=== PATIENT | female | born 1975 | race African-American/Black ===

== ENCOUNTER 2020-07-22 05:18 | Emergency (ER) | payer OTHER ==
--- OUTSIDE RECORDS SUMMARY | 2020-07-22 05:21 | XMS REPORT | Continuity of Care Document ---
:1975 Author Organization [facility] t Address [address] [place] [address] Care Team Providers Name Role Phone Andrey URIBE, Francisco Primary Care Physician Lab, Fam Pob I Attending Clinician Unavailable Doctor Unassigned, Name Attending Clinician Unavailable Henrry Gamino DO Attending Clinician Lin NESS Attending Clinician Unavailable Darron Shepherd MD Attending Clinician Draw, Lab Attending Clinician Unavailable Payers Payer Name Policy Type Policy Number Effective Date Expiration Date S ource Problems Condition Condition Condition Status Onset Resolution Last Treating Co mments Source Name Details Category Date Date Treatment Clinician Date UJLEE JULEE Disease Active 2018-04 [place] positive positive 0-25 Method i 00:00: st 00 Acute pain Acute pain Disease Active 2018-04 [place] of both of both 0-25 Methodi knees knees 00:00: st 00 Allergies, Adverse Reactions, Alerts Allergy Allergy Status Severity Reaction(s) Onset Inactive Treating Comm ents Source Name Type Date Date Clinician Latex Propensi Active Altered 2018-04 No FLU [place] ty to Mental 0-02 Methodi adverse Status 00:00: st reaction 00 s to drug No Known DA Active [facility] Allergie 2-25 Clear s 00:00: [place] 00 [facility] Family History Family Member Diagnosis Comments Start Date Stop Date Source Natural father No Known Problems Aminah Marvin Natural mother Arthritis [facility] Natural mother Depression [facility] Natural mother Hepatitis [facility] Natural mother Liver failure [facility] Social History Social Habit Start Date Stop Date Quantity Comments Source Tobacco use and 2019-02-25 2019-02-25 Never used [facility] ethodist exposure 00:00:00 00:00:00 Alcohol intake 2019-02-25 2019-02-25 Current drinker [place] [facility] 00:00:00 00:00:00 of alcohol (finding) Alcohol Comment 2019-01-19 2019-01-19 occ. [place]sen ethodist 00:00:00 00:00:00 History of 2018-12-20 Cigarette Smoker [facility] tobacco use 00:00:00 Sex Ass[birth year] [facility]ist 00:00:00 00:00:00 Smoking Status Start Date Stop Date Source Former smoker 2019-02-25 00:00:00 2019-02-25 00:00:00 [place] [facility] Medications Ordered Filled Start Stop Current Ordering Indication Dosage Frequency Signature Comments Components Source Medication Medication Date Date Medication? Clinician (SIG) Name Name phentermine 2018-04 Yes Take by Aminah becerril (LOMAIRA) 8 -08 mouth. Method i mg tablet 12:50: LOMAIRA st 35 8mg escitalopra 2018-04 Yes 20mg QD Take 20 mg [facility] (LEXAPRO) 04-27 by mouth Meth larry 10 MG 12:47: daily. st tablet 04 multivit 2018-04 Yes Chew. [place] with 1-08 gummies Methodi min-folic 12:47: st acid 200 04 mcg tablet,chew able topiramate 2018-04 Yes 200mg QD Take 200 [place] (TOPAMAX) 1-08 mg by Methodi 25 MG 12:47: mouth st tablet 04 daily. lurasidone 2018-04 Yes 120mg QD Take 120 [place] (LATUDA) 20 1-08 mg by Methodi mg tablet 12:47: mouth st 04 daily. acetaminoph 2018-04 Yes Take by Aminah jerrica en (TYLENOL 1-08 mouth. Method i EXTRA 12:47: st STRENGTH 04 ORAL) traZODone 2018-04 Yes 300mg QD Take 6 [place] (DESYREL) 1-08 tablets Methodi 50 MG 00:00: ([address] tablet 00 total) by mouth nightly as needed for sleep. diclofenac 2018-04 Yes Arthralgia 2g Q.25D Apply 2 g [place] (VOLTAREN) 002 of both topically M ethodi 1 % gel 00:00: knees 4 (four) st 00 times a day. lamoTRIgine 2018-04 2020- No History of 25mg QD Take 1 [place] (LaMICtal) 0-01-18 bipolar tablet (25 Methodi 25 MG 00:00: 23:59 disorder mg total) st tablet 00 :00 by mouth daily. Procedures This patient has no known procedures. Plan of Care Planned Activity Planned Date Details Comments Source Future Scheduled 2021-05-21 Screening for [facility] Test 00:00:00 malignant neoplasm of cervix (procedure) [code = 499026466] Future Scheduled 2020-11-18 INFLUENZA VACCINE [facility] Test 00:00:00 [code = INFLUENZA VACCINE] Future Scheduled 1992 Hepatitis C [facility] Met [facility] Test 00:00:00 screening (procedure) [code = 703287801] Future Scheduled 1990 COVID-19 VACCINE (1) Aminah becerril [facility] Test 00:00:00 [code = COVID-19 VACCINE (1)] Encounters Start End Encounter Admission Attending Care Care Encounter Source Date/Time Date/Time Type Type Clinicians Facility Department ID 2020-07-20 2020-07-20 Laboratory Lab, Adc [facility] 1.2.840.114 [id number] 18:32:02 18:52:02 Only Fam Pob I Health [id number] [place] 4.2.7.2.686 Profhussain [id number] nal 0[address] One 2020-07-20 2020-07-20 Letter Doctor ANA LAURA 1.2.840.114 [id number] 00:00:00 00:00:00 (Out) Unassigned, ANTONIO [id number] [facility] 4.2.7.2.686 [id number] 044 2020-07-20 2020-07-20 Letter Doctor ANA LAURA 1.2.840.114 [id number] 00:00:00 00:00:00 (Out) Unassigned, ANTONIO 350.1.13.10 [facility] 4.2.7.2.686 [id number] 044 2020-07-20 2020-07-20 Letter Doctor ANA LAURA 1.2.840.114 [id number] 20 00:00:00 00:00:00 (Out) Unassigned, ANTONIO 350.1.13.10 [facility] 4.2.7.2.686 [id number] 044 2019-11-03 2019-11-03 [facility] Hanny [facility] 1.2.840.114 [id number] 16:57:00 23:59:00 Encounter Henrry SPECIALTY 350.1.13.10 CARE 4.2.7.2.686 [facility] [id number] [address] 2019-11-03 2019-11-03 Orders Doctor ANA LAURA 1.2.840.114 [id number] 00:00:00 00:00:00 Only Unassigned, ANTONIO 350.1.13.10 [facility] 4.2.7.2.686 [id number] 009 2019-07-16 2019-07-16 Nurse ANA LAURA Ceball[place] 1.2.840.114 [id number] 00:00:00 00:00:00 Triage Valariearon ALVAREZ 350.1.13.10 [facility]OSPITAL 4.2.7.2.686 [id number] 019 2019-07-12 2019-07-12 Telephone [facility] [id number] 00:00:00 00:00:00 [facility] 350.1.13.10 [place] 4.2.7.2.686 [place] [id number] Medical [facility] Office Building 2019-07-12 2019-07-12 Telephone [facility] 1.2.993.364 [id number] 00:00:00 00:00:00 [facility] 350.1.13.10 [place]ron Clear 4.2.7.2.686 [place] [id number] Medical 134 Office Building 2019-06-27 2019-07-07 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 Draw, [facility] 1.2.840.114 [id number] 16:08:26 08:00:55 Visit [facility] Lab Health 350.1.13.10 [place] 4.2.7.2.686 [place] [id number] Medical 353 Office Building Results Test Description Test Time Test Comments Results Result Comments Source UA RFLX MICR CULT IF INDICATED 2019-05-11 10:13:00 Test Item Value Reference Range Interpretation Comme nts UA COLOR (test code = COLU) YELLOW YEL/STRAW UA APPEARANCE (test code = APPU) SL CLOUDY CLEAR UA GLUCOSE DIPSTICK (test code = DGLUU) NEGATIVE NEGATIVE UA BILIRUBIN DIPSTICK (test code = BILU) NEGATIVE NEGATIVE UA KETONE DIPSTICK (test code = KETU) NEGATIVE NEGATIVE UA SPECIFIC GRAVITY (test code = SGU) 1.013 1.005-1.030 N UA BLOOD DIPSTICK (test code = PÉREZ) 2+ NEGATIVE A UA PH DIPSTICK (test code = MICHEAL) 5.0 5.0-7.0 N UA PROTEIN DIPSTICK (test code = PROU) NEGATIVE NEGATIVE UA UROBILINIOGEN DIPSTICK (test code = URO) 0.2 mg/dL 0.2-1.0 UA NITRITE DIPSTICK (test code = ABBY) NEGATIVE NEGATIVE UA LEUKOCYTE ESTERASE DIPSTICK (test code = LEUU) NEGATIVE NEGA TIVE UA WBC (test code = WBCU) 0-3 WBC/HPF 0-3 UA RBC (test code = RBCU) 4-10 RBC/HPF 0-3 UA WBC NO REFLEX (test code = WBCUCL) 0-3 WBC/HPF 0-3 UA BACTERIA (test code = BACU) TRACE /HPF NONE SEEN UA SQUAMOUS CELLS (test code = SQU) 6-10 /HPF NONE SEEN A UA MUCUS (test code = MUCU) 1+ /LPF NONE SEEN Indication for culture: Suprapubic PainSpecimen Description: MID STREAM- DUP AB/PEL/SC/[id number] 09:48:00 Name: PRABHAKAR HDZ [facility] [place] : 1975 Age/S: 43 / F [address] [place] [address] Unit #: [id number] Loc: CATHY Mayo77598 Phys: Everett Eden Acct: [id number] Dis Date: Status: REG ER PHONE #: [phone] Exam Date: 05/11/2019921 FAX #: [phone] Reason: see US Pelvic Non OB Complete EXAMS: CPTCODE: [id number] DUP AB/PEL/SC/LTD 51124 PROCEDURE: PELVIC ULTRASOUND INDICATION: Severe L suprapubic pain, history of ovarian cysts; 43-year-old female. Previous history of hysterectomy, right oophorectomy, partial left oophorectomy. COMPARISON: There are no previous relevant studies available for correlat ion. TECHNIQUE: Grayscale, color and Doppler transabdominal and transvaginal imaging of the pelvis was performed with standard technique. Transvaginal ultrasound is obtained for further evaluation of the endometrium and adnexal regions. LIMITATIONS: None. FINDINGS: UTERUS: Surgically absent. RIGHT OVARY: Surgically absent. LEFT OVARY: The left ovary measures approximately 3.5 x 2.5 x 1.9 cm.Subcentimeter follicles. Anechoic unilocular cyst within the ovary 1.2 x 1.1 x 1.2 cm compatible with dominant follicle. Partially exophytic irregular shaped cyst 1.6 x 1.0 x 1.2 cm, configuration compatible with involuting follicle/corpus luteum. Flow demonstrated in the ovary with low resistance arterial and venous waveforms obtained. BLADDER: Unremarkable. Comments: Trace free fluid in the left hemipelvis. IMPRESSION: 1. Small exophytic left ovarian cyst, configuration compatible with involuting follicle/corpus luteum. Trace free fluid in the pelvis. Please correlate clinically for evidence of follicular rupture as a source of the patient's symptoms. SL: TR-H PAGE 1 Signed Report (CONTINUED) Name: PRABHAKAR HDZ [facility] [place] : 1975 Age/S: 43 / F [address] [place] [address] Unit #: [id number] Loc: [place] [address] Phys: Everett Eden Acct: [id number] Dis Date: Status: REG ER PHONE #: [phone] Exam Date:05/11/2019921 FAX #: [phone] Reason: see US Pelvic Non OB Complete EXAMS: CPT CODE: [id number] DUP AB/PEL/SC/LTD 37479 <Continued> at 0948 Reported and signed by: Jacques Banda M.D. CC: Monserrat Gamino DO; Everett CALDERON Technologist: Autumn Mcmahon RDMS(Rosa)(BR) Trnscb Date/Time: 05/11/2019 (947) Bari Orig Print D/T:S: 05/11/2019 (951) Probe: PAGE 2 Signed Report- US TRANSVAGINAL NON [id number] 09:48:00 Name: PRABHAKAR HDZ [facility] : 1975 Age/S: 43 / F [address] [place] [address] Unit #: [id number] Loc: [place], [place] Phys: Everett Eden Acct: [id number] Dis Date: Status: REG ER PHONE #: [phone] Exam Date: 05/11/2019920 FAX #: [phone] Reason: see US P elvic Non OB Complete EXAMS: CPTCODE: [id number] [place] [address] PROCEDURE: PELVIC ULTRASOUND INDICATION: Severe L suprapubic pain, history of ovarian cysts; 43-year-old female. Previous history of hysterectomy, right oophorectomy, partial left oophorectomy. COMPARISON: There are no previous relevant studies available for correlation. TECHNIQUE: Grayscale, color and Doppler transabdominal and transvaginal imaging of the pelvis was performed with standard technique. Transvaginal ultrasound is obtained for further evaluation of the endometrium and adnexal regions. LIMITATIONS: None. FINDINGS: UTERUS: Surgically absent. RIGHT OVARY: Surgically absent. LEFT OVARY: The left ovary measures approximately 3.5 x 2.5 x 1.9 cm.Subcentimeter follicles. Anechoic unilocular cyst within the ovary 1.2 x 1.1 x 1.2 cm compatible with dominant follicle. Partially exophytic irregular shaped cyst 1.6 x 1.0 x 1.2 cm, configuration compatible with involuting follicle/corpus luteum. Flow demonstrated in the ovary with low resistance arterial and venous waveforms obtained. BLADDER: Unremarkable. Comments: Trace free fluid in the left hemipelvis. IMPRESSION: 1. Small exophytic left ovarian cyst, configuration compatible with involuting follicle/corpus luteum. Trace free fluid in the pelvis. Please correlate clinically for evidence of follicular rupture as a source of the patient's symptoms. SL: NADYA PAGE 1 Signed Report (CONTINUED) Name: PRABHAKAR HDZ : 1975 Age/S: 43 / F [address] [place] [address] Unit #: [id number] Loc: [place] [address] P hys: Everett Eden Acct: [id number] Dis Date: Status: REG ER PHONE #: [phone] Exam Date:05/11/2019920 FAX #: [phone] Reason: see US Pelvic Non OB Complete EXAMS: CPT CODE: [id number] [place] [address] <Continued> at 0948 Reported and signed by: Jacques Banda M.D. CC: Monserrat Gamino DO; Everett CALDERON Technologist: Autumn Mcmahon RDMS(Rosa)(BR) Trnscb Date/Time: 05/11/2019 (947) Bari Orig Print D/T:S: 05/11/2019 (52) Probe: [id number] PAGE 2 Signed Report- US PELVIS [id number] 09:48:00 Name: PRABHAKAR HDZ : 1975 Age/S: 43 / F [address] [place] [address] Unit #: [id number] Loc: CATHY Mayo77598 Phys: Everett Eden Acct: [id number] Dis Date: Status: REG ER PHONE #: [phone] Exam Date: 05/11/2019920 FAX #: [phone] Reason: Severe L suprapubic pain, histiory of ovarian c EXAMS: CPTCODE: [id number] US PELVIS COMPLETE 62592 PROCEDURE: P ELVIC ULTRASOUND INDICATION: Severe L suprapubic pain, history of ovarian cysts; 43-year-old female. Previous history of hysterectomy, right oophorectomy, partial left oophorectomy. COMPARISON: There are no previous relevant studies available for correlation. TECHNIQUE: Grayscale, color and Doppler transabdominal and transvaginal imaging of the pelvis was performed with standard technique. Transvaginal ultrasound is obtained for further evaluation of the endometrium and adnexal regions. LIMITATIONS: None. FINDINGS: UTERUS: Surgically absent. RIGHT OVARY: Surgically absent. LEFT OVARY: The left ovary measures approximately 3.5 x 2.5 x 1.9 cm.Subcentimeter follicles. Anechoic unilocular cyst within the ovary 1.2 x 1.1 x 1.2 cm compatible with dominant follicle. Partially exophytic irregular shaped cyst 1.6 x 1.0 x 1.2 cm, configuration compatible with involuting follicle/corpus luteum. Flow demonstrated in the ovary with low resistance arterial and venous waveforms obtained. BLADDER: Unremarkable. Comments: Trace free fluid in the left hemipelvis. IMPRESSION: 1. Small exophytic left ovarian cyst, configuration compatible with involuting follicle/corpus luteum. Trace free fluid in the pelvis. Please correlate clinically for evidence of follicular rupture as a source of the patient's symptoms. SL: TR-H PAGE 1 Signed Report (CONTINUED) Name: PRABHAKAR HDZ [facility] : 1975 Age/S: 43 / F [address] [place] [address] Unit #: [id number] Loc: [facility] [place] [address] Phys: Everett Eden Acct: [id number] Dis Date: Status: REG ER PHONE #: [phone] Exam Date:05/11/2019920 FAX #: [phone] Reason: Severe L suprapubic pain, histiory of ovarian c EXAMS: CPT CODE: [id number] US PELVIS COMPLETE 66733 <Continued> at 0948 Reported and signed by: Jacques Banda M.D. CC: Monserrat CALDERON Technologist: Autumn Mcmahon RDMS(Rosa)(ERNESTINE) Trnscb Date/Time: 05/11/2019 (947) Bari Orig Print D/T:S: 05/11/2019 (0985) Probe: PAGE 2 Signed ReportCOMPREHENSIVE METABOLIC [id number] 09:05:00 Test Item Value Reference Range Interpretation Comments SODIUM (test code = NA) 138 mEq/L 134-147 N POTASSIUM (test code = 3.6 mEq/L 3.4-5.0 N K) CHLORIDE (test code = 106 mEq/L 100-108 N CL) CARBON DIOXIDE (test 31 mEq/L 21-33 N code = CO2) ANION GAP (test code = 5 0-20 N GAP) GLUCOSE (test code = 94 mg/dL 70-110 N GLU) BLOOD UREA NITROGEN 5 mg/dL 7-18 L (test code = BUN) GLOMERULAR FILTRATION 65.3 95-105 L Units of measure = RATE (test code = GFR) ml/mi n/1.73 m2 CREATININE (test code = 1.1 mg/dL 0.6-1.3 N CREAT) TOTAL PROTEIN (test 7.8 g/dL 6.4-8.2 N code = PROT) ALBUMIN (test code = 3.50 g/dL 3.4-5.0 N ALB) CALCIUM (test code = 8.6 mg/dL 8.0-10.5 N CA) BILIRUBIN TOTAL (test 0.3 MG/DL <1.5 N code = BILT) SGOT/AST (test code = 15 IUnit/L 15-37 N AST) SGPT/ALT (test code = 20 IUnit/L 15-65 N ALT) ALKALINE PHOSPHATASE 69 IUnit/L 20-125 N TOTAL (test code = ALKP) COMPREHENSIVE METABOLIC [id number] 09:00:00 Test Item Value Reference Range Interpretation Comments SODIUM (test code = NA) 138 mEq/L 134-147 N POTASSIUM (test code = K) 3.6 mEq/L 3.4-5.0 N CHLORIDE (test code = CL) 106 mEq/L 100-108 N CARBON DIOXIDE (test code = CO2) 31 mEq/L 21-33 N ANION GAP (test code = GAP) 5 0-20 N GLUCOSE (test code = GLU) 94 mg/dL 70-110 N BLOOD UREA NITROGEN (test code = 5 mg/dL 7-18 L BUN) GLOMERULAR FILTRATION RATE (test 95-105 code = GFR) CREATININE (test code = CREAT) mg/dL 0.6-1.3 TOTAL PROTEIN (test code = PROT) g/dL 6.4-8.2 ALBUMIN (test code = ALB) g/dL 3.4-5.0 CALCIUM (test code = CA) 8.6 mg/dL 8.0-10.5 N BILIRUBIN TOTAL (test code = BILT) MG/DL <1.5 SGOT/AST (test code = AST) IUnit/L 15-37 SGPT/ALT (test code = ALT) IUnit/L 15-65 ALKALINE PHOSPHATASE TOTAL (test IUnit/L 20-125 code = ALKP) CBC W/AUTO [id number] 08:36:00 Test Item Value Reference Range Interpretation Comments WHITE BLOOD CELL (test code = 6.69 x10 3/uL 4.5-11.0 N WBC) RED BLOOD CELL (test code = 5.14 x10 6/uL 3.54-5.02 H RBC) HEMOGLOBIN (test code = HGB) 13.8 g/dL 11.0-15.0 N HEMATOCRIT (test code = HCT) 42.4 % 33.0-45.0 N MEAN CELL VOLUME (test code = 82.5 fL 81.0-99.0 N MCV) MEAN CELL HGB (test code = MCH) 26.8 pg 27.0-33.0 L MEAN CELL HGB CONCETRATION 32.5 g/dL 33.0-37.0 L (test code = MCHC) RED CELL DISTRIBUTION WIDTH CV 13.8 % 11.5-14.5 N (test code = RDW) RED CELL DISTRIBUTION WIDTH SD 41.1 fL 37.0-54.0 N (test code = RDW-SD) PLATELET COUNT (test code = 335 x10 3/uL 150-400 N PLT) MEAN PLATELET VOLUME (test code 10.1 fL 7.0-9.0 H = MPV) NEUTROPHIL % (test code = NT%) 56.1 % 56.0-77.0 N IMMATURE GRANULOCYTE % (test 0.3 % 0.0-2.0 N code = IG%) LYMPHOCYTE % (test code = LY%) 35.4 % 14.0-32.0 H MONOCYTE % (test code = MO%) 5.7 % 4.8-9.0 N EOSINOPHIL % (test code = EO%) 2.1 % 0.3-3.7 N BASOPHIL % (test code = BA%) 0.4 % 0.0-2.0 N NUCLEATED RBC % (test code = 0.0 % 0-0 N NRBC%) NEUTROPHIL # (test code = NT#) 3.75 x10 3/uL 2.0-7.6 N IMMATURE GRANULOCYTE # (test 0.02 x10 3/uL 0.00-0.03 N code = IG#) LYMPHOCYTE # (test code = LY#) 2.37 x10 3/uL 1.0-3.8 N MONOCYTE # (test code = MO#) 0.38 x10 3/uL 0.1-0.8 N EOSINOPHIL # (test code = EO#) 0.14 x10 3/uL 0.0-0.2 N BASOPHIL # (test code = BA#) 0.03 x10 3/uL 0.0-0.2 N NUCLEATED RBC # (test code = 0.00 x10 3/uL 0.0-0.1 N NRBC#) MANUAL DIFF REQUIRED (test code NO = MDIFF) - CT HEAD/BRAIN W/O [id number] 16:58:00 Name: PRABHAKAR HDZ Ok [facility] : 1975 Age/S: 43 / F [address] [place] [address] Unit #: [id number] Loc: [facility] [id number] Phys: Lalo Granado Acct: [id number] Dis Date: Status: REG ER PHONE #: [phone] Exam Date: 04/23/2019 1630 FAX #: [phone] Reason: worst he adache of her life EXAMS: CPTCODE: [id number] CT HEAD/BRAIN W/O CONT 49096 Study: - CT HEAD/BRAIN W/O CONT 04/23/2019 3:31 PM Ordering Physician: YUMIKO Guthrie Clinical Indication: 44-year-old with worst headache of life. Migraine for 2 or 3 days. Comparison: None TECHNIQUE: CT images are obtained from the foramen magnum to the vertex on a multidetector CT. Sagittal and coronal reformats are acquired. CT imaging performed at this location utilizes radiation dose optimization techniques which include one or more of the following: Automated exposure control Adjustment of the MAA and/or KUB according topatient size Use of iterative reconstruction technique CT radiation dose DLP: 420 mGy-cm. FINDINGS: Ventricles, sulci and basal cisterns are within normal limits for age. The heard-white junction is intact. No encephalomalacic changes are seen. Sellar and suprasellar regions as well as cerebellopontine angle cisterns are normal in appearance. There is no evidence for intracranial mass, mass effect or extra-axial fluid collection. There is no evidence for intracranial hemorrhage. The skull is intact. Visualized paranasal sinuses are clear. Mastoid air cells are clear. Orbital structures are grossly unremarkable. IMPRESSION: Normal computed tomographyscan of the brain without contrast. SL: SIL at 5638 Reported and signed by: Leny Denton M.D. PAGE 1 Signed Report (CONTINUED) Name: PRABHAKAR HDZ [facility] : 1975 Age/S: 43 / F [address] [place] [address] Unit #: [id number] Loc: [place] [address] Phys: Lalo Granado Acct: [id number] Dis Date: Status: REG ER PHONE #: [phone] Exam Date: 04/23/2019 1630 FAX #: [phone] Reason: worst headache of her life EXAMS: CPT CODE: [id number] CT HEAD/BRAIN W/O CONT 60143 <Continued> CC: Lalo CALDERON; Leo Freed MD Technologist:Geoff Pope, RT(R); Viviana Laura CTDI: DLP: Trnscb Date/Time: 04/23/2019 (1658) [email or web address] Orig Print D/T: S: 04/23/2019(5787) PAGE 2 Signed Report
--- NOTE | 2020-07-22 05:46 | ER ---
Nurse's Notes [facility] Name: Yoni Gao Age: 44 yrs Sex: Female : 1975 Arrival Date: 07/22/2020 Time: 05:21 Bed 5 Private MD: Diagnosis: Otalgia, left ear Presentation: 07/22 05:30 Chief complaint: Patient states: I have been having left ear pain for the past week. I jb4 was put on Amoxicillin for it by my PCP. It has not gotten any better. Coronavirus screen: Client denies travel out of the [place] in the last 14 days. At this time, the client does not indicate any symptoms associated with coronavirus-19. Ebola Screen: No symptoms or risks identified at this time. Initial Sepsis Screen: Does the patient meet any 2 criteria? No. Patient's initial sepsis screen is negative. Does the patient have a suspected source of infection? No. Patient's initial sepsis screen is negative. Risk Assessment: Do you want to hurt yourself or someone else? Patient reports no desire to harm self or others. Onset of symptoms was July 15, 2020. Transition of care: patient was not received from another setting of care. 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 - Social history:: Smoking status: Patient denies any tobacco usage or history of. Patient uses alcohol, occasionally. Screenin:34 Abuse screen: Denies threats or abuse. Nutritional screening: No deficits noted. jb4 Tuberculosis screening: No symptoms or risk factors identified. Fall Risk None identified. Assessment: 05:34 General: Appears in no apparent distress. uncomfortable, Behavior is calm, cooperative, jb4 appropriate for age. Pain: Complains of pain in left ear Pain does not radiate. Pain currently is 10 out of 10 on a pain scale. Quality of pain is described as throbbing. Neuro: Level of Consciousness is awake, alert, obeys commands, Oriented to person, place, time, situation. Cardiovascular: Patient's skin is warm and dry. Respiratory: Airway is patent Respiratory effort is even, unlabored, Respiratory pattern is regular, symmetrical. GI: No signs and/or symptoms were reported involving the gastrointestinal system. : No signs and/or symptoms were reported regarding the genitourinary system. EENT: Ear canal clear on left ear. Derm: Skin is intact, Skin is dry, Skin is normal, Skin temperature is warm. Musculoskeletal: Circulation, motion, and sensation intact. Range of motion: intact in all extremities. 05:45 Reassessment: PT refused Toradol stating " It makes me sleepy and I have to be able to jb4 stay awake for my paper and to drive home.". 05:55 Reassessment: Patient appears in no apparent distress at this time. Patient and/or jb4 family updated on plan of care and expected duration. Pain level reassessed. Patient is alert, oriented x 3, equal unlabored respirations, skin warm/dry/pink. Provider at the bedside explaining POC and diagnoses to pt. Pt states " It has to be an ear infection. It hurts too bad to be anything else. The amoxicillin is not working." Provider educated pt on disease process and treatment. Pt has no further questions. Upon the provider leaving the room, pt signed discharged packet and states " he has no bed side manners, he's an ass hole.". 06:00 Reassessment: Patient appears in no apparent distress at this time. pt at the main nurses station, refuses to get her dc paperwork and prescriptions from the [facility] at this time. pt states " you have terrible bed side manner" while walking out of the department at this time. Vital Signs: 05:30 BP 156 / 115; Pulse 82; Resp 16; Temp 97.4(O); Pulse Ox 98% on R/A; Weight 99.79 kg jb4 (R); Height 5 ft. 3 in. (160.02 cm); Pain 10/10; 05:30 Body Mass Index 38.97 (99.79 kg, 160.02 cm) [facility] ED Course: 05:21 Patient arrived in ED. es 05:27 Mark Michael MD is Attending Physician. tw4 05:30 Shamar De La Garza, RN is Primary Nurse. jb4 05:32 Triage completed. jb4 05:33 Arm band placed on right wrist. jb4 05:34 Patient has correct armband on for positive identification. Bed in low position. Call jb4 light in reach. Side rails up X 1. Pulse ox on. NIBP on. 06:04 No provider procedures requiring assistance completed. Patient did not have IV access jb4 during this emergency room visit. Administered Medications: 05:45 Not Given (Patient Refused): TORadol 60 mg IM once jb4 Outcome: 05:46 Discharge ordered by MD. tw4 06:00 Discharged to home ambulatory. sg 06:00 Condition: good 06:00 Discharge instructions given to pt at main nurses station refusing to take her DC paperwork and prescriptions from the ERP at this time 06:03 Patient left the ED. sg Signatures: Jacobo Giraldo RN RN Stephanie Woodward James, RN RN jb4 Mark Michael MD MD 4 Corrections: (The following items were deleted from the chart) 06:17 05:55 Reassessment: Patient appears in no apparent distress at this time. Patient jb4 and/or family updated on plan of care and expected duration. Pain level reassessed. Patient is alert, oriented x 3, equal unlabored respirations, skin warm/dry/pink. Provider at the bedside explaining POC and diagnoses to pt. jb4
--- NOTE | 2020-07-22 05:46 | EDPHYS ---
Physician Documentation [facility] Name: Yoni Gao Age: 44 yrs Sex: Female : 1975 Arrival Date: 07/22/2020 Time: 05:21 Bed 5 Private MD: ED Physician Mark Michael HPI: 07/22 06:06 This 44 yrs old Black Female presents to ER via Ambulatory with complaints of Ear Pain. tw4 06:06 The patient presents with pain. The complaints affect the left ear. Onset: The tw4 symptoms/episode began/occurred 1 week(s) ago. Modifying factors: The symptoms are alleviated by nothing, the symptoms are aggravated by nothing. The patient has not experienced similar symptoms in the past. 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 - Social history:: Smoking status: Patient denies any tobacco usage or history of. Patient uses alcohol, occasionally. ROS: 06:06 Constitutional: Negative for fever, chills, and weight loss, Eyes: Negative for injury, tw4 pain, redness, and discharge. 06:06 Cardiovascular: Negative for chest pain, palpitations, and edema, Respiratory: Negative for shortness of breath, cough, wheezing, and pleuritic chest pain, Abdomen/GI: Negative for abdominal pain, nausea, vomiting, diarrhea, and constipation, Back: Negative for injury and pain, MS/Extremity: Negative for injury and deformity, Skin: Negative for injury, rash, and discoloration. 06:06 ENT: Positive for ear pain. Exam: 06:06 Constitutional: This is a well developed, well nourished patient who is awake, alert, tw4 and in no acute distress. Head/Face: Normocephalic, atraumatic. Eyes: Pupils equal round and reactive to light, extra-ocular motions intact. Lids and lashes normal. Conjunctiva and sclera are non-icteric and not injected. Cornea within normal limits. Periorbital areas with no swelling, redness, or edema. Neck: Trachea midline, no thyromegaly or masses palpated, and no cervical lymphadenopathy. Supple, full range of motion without nuchal rigidity, or vertebral point tenderness. No Meningismus. 06:06 ENT: Ear canal(s): cerumen impaction, that is mild, occluding the left ear canal, TM's: dullness, on the left. Vital Signs: 05:30 BP 156 / 115; Pulse 82; Resp 16; Temp 97.4(O); Pulse Ox 98% on R/A; Weight 99.79 kg jb4 (R); Height 5 ft. 3 in. (160.02 cm); Pain 10/10; 05:30 Body Mass Index 38.97 (99.79 kg, 160.02 cm) jb4 MDM: 05:27 Patient medically screened. tw4 06:03 Differential diagnosis: otitis media, otitis externa. Data reviewed: vital signs, tw4 nurses notes. Counseling: I had a detailed discussion with the patient and/or guardian regarding: the historical points, exam findings, and any diagnostic results supporting the discharge/admit diagnosis. Medical screen evaluation completed. EMTALA emergency medical condition absent. ED course: PT EAR DIDNOT REVEAL INFECTION. GAVE PATIENT THE OPTION OF TRYING TOPICAL EAR ANALGESIA. OFFERED PT ADDITIONAL ORAL ANTIBIOTICS. PT COULD NOT RECEIVE NARCOTIC MEDICATIONS SHE WAS DRIVING. PT UPSET THAT SHE COULD NOT RECEIVE MEDICATION FOR FOR OTALGIA. 06:09 ED course: PT REFUSED TORADOL. tw4 Administered Medications: 05:45 Not Given (Patient Refused): TORadol 60 mg IM once jb4 Disposition: 07/22/20 05:46 Discharged to Home. Impression: Otalgia, left ear. - Condition is Stable. - Discharge Instructions: Ear Drops, Adult, Earache, Adult. - Prescriptions for Cleocin 300 mg Oral Capsule - take 1 capsule by ORAL route every 6 hours for 10 days; 40 capsule. - Medication Reconciliation Form, Thank You Letter, Antibiotic Education, Prescription Opioid Use form. - Follow up: Private Physician; When: Upon discharge from the Emergency Department; Reason: Recheck today's complaints, Continuance of care, Re-evaluation by your physician. - Problem is an ongoing problem. - Symptoms are unchanged. Signatures: Jacobo Giraldo RN RN sg Shamar De La Garza RN RN jb4 Mark Michael MD MD tw4 Corrections: (The following items were deleted from the chart) 06:03 05:46 07/22/2020 05:46 Discharged to Home. Impression: Otalgia, left ear. Condition is sg Stable. Forms are Medication Reconciliation Form, Thank You Letter, Antibiotic Education, Prescription Opioid Use. Follow up: Private Physician; When: Upon discharge from the Emergency Department; Reason: Recheck today's complaints, Continuance of care, Re-evaluation by your physician. Problem is an ongoing problem. Symptoms are unchanged. tw4
[2020-07-22] MEDS ORDERED: KETOROLAC 30 MG/ML INJ ONE (05:54)
[2020-07-22 06:26] VITALS: BP 156/115; TEMP 97.4; O2SAT 98
== END 2020-07-22 06:03 | disposition home or self-care (01) ==
LOC: ER 05:18
DX: H92.02 Otalgia, left ear (principal); Z86.718 Personal history of other venous thrombosis and embolism
CPT/HCPCS: 99283